=== PATIENT | male | born 1955 | race Caucasian/White ===

== ENCOUNTER 2016-05-11 06:41 | Day surgery (SDC) | payer BC ==
[2016-05-05 10:19] LABS: HEMATOCRIT 41.9 % (40.0-51.0); HEMOGLOBIN 14.1 g/dL (13.6-17.8)
[2016-05-05 10:43] LABS: CALCIUM, SERUM 9.2 MG/DL (8.5-10.4); CHLORIDE, SERUM 102 MMOL/L (96-112); CO2 (CARBON DIOXIDE) 31 MMOL/L (24-34); CREATININE 0.99 MG/DL (0.70-1.30); GFR AFRICAN AMERICAN 95 ML/MIN (>=60); GFR NON AFRICAN AMERICAN 82 ML/MIN (>=60); POTASSIUM, SERUM 4.1 MMOL/L (3.5-5.3); SODIUM, SERUM 141 MMOL/L (135-148)
[2016-05-05 10:44] LABS: BUN (BLOOD UREA NITROGEN) 19 MG/DL (6-23); GLUCOSE, SERUM 91 MG/DL (60-99)
--- NOTE | ~2016-05-11 | OP ---
Record Of Operation [facility] [address] [place]. 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 POSTOPERATIVE DIAGNOSIS: Bilateral true vocal cord leukoplakia. PROCEDURES: 1. Microdirect laryngoscopy with CO2 laser excision of bilateral true vocal cord leukoplakia. 2. Rigid bronchoscopy. SURGEON: Audie Khalil M.D. ANESTHESIA: General. COMPLICATIONS: None. COUNTS: All counts correct following the procedure. ESTIMATED BLOOD LOSS: Minimal. PREOPERATIVE INFORMED CONSENT: We discussed the risk and benefits of surgery including, but not limited to bleeding, infection, possible airway fire, possible scarring of the vocal cords resulting in temporary or permanent hoarseness, possible recurrence of leukoplakia requiring a repeat procedure. He understands the risks and benefits of surgery, and consent is on the chart. PROCEDURE IN DETAIL: The patient was brought to the operating suite and placed on the operating table in supine position. General endotracheal anesthesia was initiated without incident. The patient's head and neck were cleaned, prepped and draped in usual sterile fashion. Following this, a bite guard was placed in the upper teeth. He has a very poor dentition. A Dedo laryngoscope was carefully inserted into the oral cavity and advanced into the supraglottic larynx and suspended from Castillo stand. A 0-degree Shah xiao was placed through the laryngoscope and used to inspect the vocal cords. Pictures were taken of the glottic and subglottic region. The scope was advanced down the trachea. No evidence of any tracheal lesions. The scope was then removed. The microscope was brought into the field and under direction of microscope, some leukoplakia in the right anterior vocal cord and the left anterior vocal cord were biopsied using microlaryngeal cup forceps. The specimen was sent in formalin for permanent pathology. Areas of leukoplakia were then lasered using CO2 laser set at 5 dash continuous and used to vaporize the mucosal surface of the areas of leukoplakia. No significant bleeding, and the patient was taken out of suspension. The Dedo laryngoscope was removed. The teeth were noted to be in preoperative condition. The patient was awakened from anesthesia and taken to the recovery room in stable condition. Record Of Operation [facility] [address] [place]. [address] NAME: COLLIN DAVILA : 55 [place] [facility] [place] [id number] AGE: 61 ADM/REG DATE : 05/11/16 MR#: [id number] REPORT SERV DATE: 05/11/16 DICTATED BY: AUDIE KHALIL DATE: 05/11/16 REPORT STATUS : Draft TRANSCRIBED BY: ZABRINA DATE: 05/11/16 AARON/ZABRINA Audie Khalil M.D. / [id number] CC: Yousuf Waller M.D.
[~2016-05-11 06:41] MED LIST: FLOMAX4 PO; LOTENSIN HCT1 TA2 PO; NORV5 PO; ZIAC10 PO
== END 2016-05-11 15:25 | disposition home or self-care (01) ==
LOC: SDC 06:41
PROVIDERS: Otolaryngology
PROC: 0CBV8ZZ Excision of Left Vocal Cord, Via Natural or Artificial Opening Endoscopic (ICD-10-PCS; principal; 2016-05-11 10:15)
PROC: 0CBT8ZZ Excision of Right Vocal Cord, Via Natural or Artificial Opening Endoscopic (ICD-10-PCS; 2016-05-11 10:15)
DX: J38.3 Other diseases of vocal cords (principal); I10 Essential (primary) hypertension; F17.210 Nicotine dependence, cigarettes, uncomplicated; J45.909 Unspecified asthma, uncomplicated; Z79.899 Other long term (current) drug therapy; Z86.010 Personal history of colon polyps; M19.90 Unspecified osteoarthritis, unspecified site; Z98.890 Other specified postprocedural states
CPT/HCPCS: 80048; 85014; 85018; 88305; 93005; J2250; J2405; J2710; J3010